=== PATIENT | female | born 1990 | race Caucasian/White ===

== ENCOUNTER 2016-11-05 19:30 | Emergency (ER) | payer SELFPAY ==
[2016-11-05 19:42] VITALS: BP 142/84; BMI 29.2
--- NOTE | 2016-11-05 20:08 | DR.GENAD ---
HPI - PCP Primary Care Physician: VINNIE HUA - Complaint/Symptoms Chief Complaint:: POSITIVE HOME PREG TEST; PAIN WITH BLEEDING, N/V; PAIN MORE INTENSE X 2 WEEKS; STABBING PAIN LEFT TO RIGHT ON LOWER ABDOMEN. Self Treatment fo Chief Complaint: NO MEDS TAKEN AT HOME - Source History Provided: Patient - Mode of Arrival Mode of Arrival: Ambulatory - Timing Onset of Chief Complaint: 10/23/16 PMH - PMH Past Medical History: Yes Past Medical History: Asthma Past Surgical History: Yes Past Surgical History Comment: - Family History History of Family Medical Conditions: Yes Family Medical History: Hypertension - Social History Does patient currently use any type of tobacco product: No Have you used tobacco products in the last 12 months: No Type of Tobacco Use: None Alcohol Use: Rarely Do you use any recreational Drugs:: No Lives With: Alone Lives Where: Home - infectious screening In the last 2 months have you had wt loss of >10#?: NO Have you had fever, night sweats or hemotysis?: No Have you traveled outside the country in the last 6 months?: No Isolation: Standard ROS - Review of Systems Eyes: No Symptoms Reported ENTM: No Symptoms Reported Respiratoy: No Symptoms Reported Cardiovascular: No Symptoms Reported Gastrointestinal/Abdominal: No Symptoms Reported Genitourinary: No Symptoms Reported Neurological: No Symptoms Reported Musculoskeletal: No Symptoms Reported Integumentary: No Symptoms Reported Hematologic/Lymphatic: No Symptoms Reported Endocrine: No Symptoms Reported, Increased Hunger All Other Systems: Reviewed and Negative PE - Vital Signs Vitals: Temperature 98.1 F Pulse Rate 90 Respiratory Rate 16 Blood Pressure 142/84 O2 Sat by Pulse Oximetry 94 - General Limitations: No Limitations, Language Barrier General Appearance: Alert - Head Head Exam: Normal Inspection, Atraumatic - Eyes Eye exam: Normal Appearance, PERRL, EOMI - ENT ENT Exam: Normal Exam External Ear Exam: Normal External Inspection TM/Canal Exam: Bilateral Normal Nose Exam: Normal Nose Exam, Sinus Tenderness Mouth Exam: Normal Inspection Throat Exam: Normal Inspection - Neck Neck Exam: Normal Inspection - Chest Chest Inspection: Normal Inspection - Respiratory Respiratory Exam: Normal Lung Sounds Bilat Respiratory Exam: Bilateral Clear to Auscultation - Cardiovascular Cardiovascular Exam: Regular Rate, Normal Rhythm - Abdominal Exam Abdominal Exam: Normal Inspection, Normal Bowel Sounds Abdominal Tenderness: negative: RUQ, RLQ, LUQ, LLQ, Epigastrium, Suprapubic, Diffuse, Mild, Moderate, Severe, Other - Extremities Extremities Exam: Normal Inspection, Full ROM - Back Back Exam: Normal Inspection, Full ROM - Neurologic Neurological Exam: Alert, Oriented X3, CN II-XII Intact - Psychiatric Psychiatric Exam: Normal Affect, Normal Mood - Skin Skin Exam: Warm, Dry, Intact ROR - Labs Reviewed Result Diagrams: 11/05/16 20:13 11/05/16 20:13 Laboratory: WBC 5.0 X10^3/uL (3.6-10.0) 11/05/16 20:13 RBC 5.24 X10^6/uL (3.5-5.4) 11/05/16 20:13 Hgb 11.8 g/dL (12.0-16.0) L 11/05/16 20:13 Hct 35.9 % (36.0-47.0) L 11/05/16 20:13 MCV 68.5 fL (80.0-100.0) L 11/05/16 20:13 MCH 22.5 pg (27.0-34.0) L 11/05/16 20:13 MCHC 32.8 g/dL (33.0-35.0) L 11/05/16 20:13 RDW 16.4 % (11.6-16.5) 11/05/16 20:13 Plt Count 165 X10^3/uL (150.0-450.0) 11/05/16 20:13 Plt Count Comment Adequate (ADEQUATE) 11/05/16 20:13 MPV 7.2 fL (7.4-11.0) L 11/05/16 20:13 Neut % 60.8 % (42.0-75.0) 11/05/16 20:13 Lymph % 29.5 % (21.0-51.0) 11/05/16 20:13 [place] % 6.7 % (0.0-13.0) 11/05/16 20:13 Eos % 2.1 % (0.9-2.9) 11/05/16 20:13 Baso % 0.9 % (0.2-1.0) 11/05/16 20:13 Neut # 3.0 x10^3/uL (2.2-4.8) 11/05/16 20:13 Lymph # 1.5 X10^3/uL (1.3-2.9) 11/05/16 20:13 [place] # 0.3 x10^3/uL (0.3-0.8) 11/05/16 20:13 Eos # 0.1 x10^3/uL (0.0-0.2) 11/05/16 20:13 Baso # 0.0 X10^3/uL (0.0-0.1) 11/05/16 20:13 Absolute Nucleated RBC 0.1 /100WBC 11/05/16 20:13 Plt Morphology Comment Normal (NORMAL) 11/05/16 20:13 RBC Morphology Abnormal (NORMAL) A 11/05/16 20:13 Hypochromasia 1+ A 11/05/16 20:13 Microcytosis 1+ A 11/05/16 20:13 Sodium 138 mmol/L (136-145) 11/05/16 20:13 Corrected Sodium TNP 11/05/16 20:13 Potassium 3.9 mmol/L (3.5-5.1) 11/05/16 20:13 Chloride 101 mmol/L (98-107) 11/05/16 20:13 Carbon Dioxide 28.4 mmol/L (21-32) 11/05/16 20:13 BUN 10 mg/dL (7-18) 11/05/16 20:13 Creatinine 0.84 mg/dL (0.55-1.02) 11/05/16 20:13 Est GFR (MDRD) Af Amer > 60 (>60) 11/05/16 20:13 Est GFR (MDRD) Non-Af > 60 (>60) 11/05/16 20:13 Glucose 93 mg/dL (65-99) 11/05/16 20:13 Calcium 9.0 mg/dL (8.5-10.1) 11/05/16 20:13 HCG, Quant < 1 mIU/mL (0-6) 11/05/16 20:13 Specimen Type Clean catch urine 11/05/16 20:01 Urine Color Yellow (YELLOW) 11/05/16 20:01 Urine Appearance Slightly hazy (CLEAR) 11/05/16 20: Urine pH 7.0 (5.0 - 8.0) 11/05/16 20:01 Ur Specific [place] 1.010 (1.000-1.030) 11/05/16 20:01 Urine Protein 3+ (NEGATIVE) 11/05/16 20:01 Urine Glucose (UA) Negative (NEGATIVE) 11/05/16 20:01 Urine Ketones Negative (NEGATIVE) 11/05/16 20:01 Urine Occult Blood 2+ (NEGATIVE) 11/05/16 20:01 Urine Nitrite Negative (NEGATIVE) 11/05/16 20: Urine Bilirubin Negative (NEGATIVE) 11/05/16 20:01 Urine Urobilinogen 1+ (NORMAL) 11/05/16 20:01 Ur Leukocyte Esterase 1+ (NEGATIVE) 11/05/16 20:01 Urine RBC 5-7 /HPF (NEGATIVE) 11/05/16 20:01 Urine WBC 2-3 /HPF (NEGATIVE) 11/05/16 20:01 Ur Squamous Epith Cells Few /HPF (NEGATIVE) 11/05/16 20:01 Amorphous Sediment Trace /HPF (NEGATIVE) 11/05/16 20:01 Urine Bacteria 1+ /HPF (NEGATIVE) 11/05/16 20:01 Ur Culture Indicated? No/not indicated 11/05/16 20:01 - XRAY XRAY Interpreted by: Radiologist (CT Abd/Pelv: Mild proximal small bowel wall thickening with associated perienteric stranding and mild mesenteric adenopathy, suggestive for enteritis and mesenteric adenitis.) - Diagnosis Discharge Problem: Mesenteric adenitis - Discharge Plan Condition: Stable - Follow ups/Referrals Follow ups/Referrals: VINNIE HUA [Primary Care Provider] - 3 days - Instructions
[2016-11-05 20:09] LABS: BILIRUBIN,URINE NEGATIVE (NEGATIVE); BLOOD/HEMOGLOBIN,URINE 2+ (NEGATIVE); GLUCOSE, URINE NEGATIVE (NEGATIVE); KETONES,URINE NEGATIVE (NEGATIVE); LEUKOCYTE ESTERASE ,URINE 1+ (NEGATIVE); NITRITES,URINE NEGATIVE (NEGATIVE); PROTEIN,URINE 3+ (NEGATIVE); UROBILINOGEN,URINE 1+ (NORMAL)
[2016-11-05 20:16] LABS: APPEARANCE,URINE SLIGHTLY HAZY (CLEAR); COLOR,URINE YELLOW (YELLOW)
[2016-11-05 20:17] LABS: AMORPHOUS SEDIMENT,UR TRACE /HPF (NEGATIVE); BACTERIA,URINE 1+ /HPF (NEGATIVE); SQUAMOUS EPITHELIAL CELL,UR FEW /HPF (NEGATIVE)
[2016-11-05 20:22] LABS: BASOPHILS % (AUTO) 0.9 % (0.2-1.0); EOSINOPHILS # (AUTO) 0.1 x10^3/uL (0.0-0.2); EOSINOPHILS % (AUTO) 2.1 % (0.9-2.9); HEMATOCRIT 35.9 % (36.0-47.0); HEMOGLOBIN 11.8 g/dL (12.0-16.0); LYMPHOCYTES # (AUTO) 1.5 X10^3/uL (1.3-2.9); LYMPHOCYTES % (AUTO) 29.5 % (21.0-51.0); MEAN CORPUSCULAR HEMOGLOBIN 22.5 pg (27.0-34.0); MEAN CORPUSCULAR HGB CONC 32.8 g/dL (33.0-35.0); MEAN CORPUSCULAR VOLUME 68.5 fL (80.0-100.0); MEAN PLATELET VOLUME 7.2 fL (7.4-11.0); MONOCYTES # (AUTO) 0.3 x10^3/uL (0.3-0.8); MONOCYTES % (AUTO) 6.7 % (0.0-13.0); NEUTROPHILS % (AUTO) 60.8 % (42.0-75.0); PLATELET COUNT 165 X10^3/uL (150.0-450.0); RED BLOOD COUNT 5.24 X10^6/uL (3.5-5.4); RED CELL DISTRIBUTION WIDTH 16.4 % (11.6-16.5)
[2016-11-05 20:32] LABS: BLOOD UREA NITROGEN 10 mg/dL (7-18); CARBON DIOXIDE 28.4 mmol/L (21-32); CHLORIDE 101 mmol/L (98-107); CREATININE 0.84 mg/dL (0.55-1.02); SODIUM 138 mmol/L (136-145); eGFR BLACK RACES > 60 (>60); eGFR NON BLACK RACES > 60 (>60)
[2016-11-05 20:39] LABS: HYPOCHROMASIA 1+; MICROCYTOSIS 1+; PLATELET MORPHOLOGY COMMENT NORMAL (NORMAL)
[2016-11-05 20:45] LABS: HCG,QUANTITATIVE < 1 mIU/mL (0-6)
--- NOTE | 2016-11-05 21:36 | CT ---
CT abdomen and pelvis without contrast Indication: Flank pain, hematuria Technique: Helical CT images of the abdomen and pelvis were obtained without IV contrast. Reformatted images in the coronal and sagittal planes were also generated for review. Comparison: None Findings: There is mild atelectasis versus scarring within the right lower lobe. Visualized lung base s are otherwise clear. No aggressive osseous lesions are identified. Within the limits of a noncontrast exam, the liver, collapsed gallbladder, spleen, pancreas and adren al glands are grossly unremarkable. Both kidneys and visualize ureters are also normal in appearance without evidence of radiopaque stones or hydroureteronephrosis. Mild thickening and perienteric stran ding is noted of the proximal small bowel with numerous shotty left mesenteric lymph nodes. The remai esperanza GI tract, including the appendix is normal. The IVC, abdominal aorta and urinary bladder are nor mal. An IUD is present within the uterus. The unenhanced adnexa are grossly unremarkable. No free air , free fluid or pathologically enlarged lymph nodes are identified. Impression: Mild proximal small bowel wall thickening with associated perienteric stranding and mild mesenteric a denopathy, suggestive for enteritis and mesenteric adenitis. Otherwise, no additional acute abnormality identified. Specifically, no CT evidence of urolithiasis o r obstructive uropathy. Reported By:
== END 2016-11-05 22:20 | disposition home or self-care (01) ==
LOC: ER 19:30
DX: I88.0 Nonspecific mesenteric lymphadenitis (principal)
CPT/HCPCS: 12013; 36415; 74176; 80048; 81001; 84702; 85025; 99283

== ENCOUNTER 2018-06-22 21:32 | Observation (INO) ==
[2018-06-22] MEDS ORDERED: ZOFRAN INJ 4 MG VIAL ONE (21:50)
[2018-06-22] MEDS ORDERED: ZOFRAN INJ 4 MG VIAL IVP ONE (21:50)
[2018-06-22] MEDS ORDERED: NS 1000 ML 1,000 ML IV ONE (21:50)
[2018-06-22] MEDS ORDERED: NS 1000 ML 1,000 ML ONE (21:50)
[2018-06-22] MEDS ORDERED: DEMEROL INJ IVP ONE (22:26)
[2018-06-22 22:29] LABS: BASOPHILS % (AUTO) 0.1 % (0.2-1.0); EOSINOPHILS # (AUTO) 0.1 x10^3/uL (0.0-0.2); EOSINOPHILS % (AUTO) 0.9 % (0.9-2.9); LYMPHOCYTES # (AUTO) 0.8 X10^3/uL (1.3-2.9); LYMPHOCYTES % (AUTO) 6.6 % (21.0-51.0); MEAN CORPUSCULAR HEMOGLOBIN 29.3 pg (27.0-34.0); MEAN CORPUSCULAR HGB CONC 34.2 g/dL (33.0-35.0); MEAN CORPUSCULAR VOLUME 85.5 fL (80.0-100.0); MEAN PLATELET VOLUME 7.7 fL (7.4-11.0); MONOCYTES # (AUTO) 0.4 x10^3/uL (0.3-0.8); MONOCYTES % (AUTO) 3.3 % (0.0-13.0); NEUTROPHILS # (AUTO) 11.2 x10^3/uL (2.2-4.8); NEUTROPHILS % (AUTO) 89.1 % (42.0-75.0); PLATELET COUNT 266 X10^3/uL (150.0-450.0); RED BLOOD COUNT 4.79 X10^6/uL (3.5-5.4); RED CELL DISTRIBUTION WIDTH 12.8 % (11.6-16.5); WHITE BLOOD COUNT 12.5 X10^3/uL (3.6-10.0)
[2018-06-22] MEDS ORDERED: DEMEROL INJ ONE (22:29)
[2018-06-22 22:37] LABS: ALANINE AMINOTRANSFERASE 44 Units/L (12-78); ALBUMIN 3.4 g/dL (3.4-5.0); ALKALINE PHOSPHATASE 65 Units/L (46-116); AMYLASE 40 Units/L (25-115); ASPARTATE AMINO TRANSFERASE 27 Units/L (15-37); BLOOD UREA NITROGEN 10 mg/dL (7-18); CALCIUM 8.7 mg/dL (8.5-10.1); CARBON DIOXIDE 24.8 mmol/L (21-32); CHLORIDE 105 mmol/L (98-107); COR NA(FOR HYPERGLY) 142 mmol/L (136-145); CREATININE 0.97 mg/dL (0.55-1.02); LIPASE 104 Units/L (73-393); SODIUM 141 mmol/L (136-145); TOTAL PROTEIN 7.1 g/dL (6.4-8.2); eGFR NON BLACK RACES > 60 (>60)
[2018-06-23] MEDS ORDERED: NS 100 ML IV + SPIKE MINIBAG* 100 ML ONE ×2 (00:05→01:16)
--- NOTE | 2018-06-23 00:52 | CT ---
CT abdomen and pelvis with contrast Indication: right lower quadrant pain Comparison: 11/05/2016 Technique: Multiple axial images of the abdomen and pelvis were obtained from the lung bases to the pubic symphysis after the administration of IV contrast. Coronal and sagittal reformatted images were also provided. Findings: No change in scarring within the subpleural right lower lobe. No focal hepatic lesion. The gallbladder, bile ducts, spleen, pancreas and adrenal glands are normal. Neither kidney demonstrates evidence of nephrolithiasis, hydronephrosis or mass. Urinary bladder is normal. No pelvic or adnexal mass. IUD is noted in expected positioning. The rectum and colon are unremarkable. There is dilatation of the appendix measuring approximately 11 mm in greatest caliber with surrounding inflammatory change consistent acute appendicitis. There is no localizing fluid or air to suggest perforation. The upper GI tract demonstrates no evidence of mass or obstruction. Abdominal aorta is normal in caliber. No acute osseous abnormality. Impression: 1.Acute appendicitis without evidence of free air or localizing fluid collection to suggest perforation. Surgical consultation is recommended. 2. Incidental, nonacute findings as above. Reported By:
[2018-06-23] MEDS ORDERED: ZOSYN VIAL 3.375 GRAMS 3.375 G in NS 100 ML IV + SPIKE MINIBAG* 100 ML IV ONE (01:09)
[2018-06-23] MEDS ORDERED: ZOSYN VIAL 3.375 GRAMS IV ONE (01:16)
--- NOTE | 2018-06-23 01:16 | ED.ABDFE ---
HPI Time Seen Time Seen by Provider: 06/22/18 22:18 PCP Primary Care Physician: NFD Complaint Chief Complaint:: PT STATES" I'M HAVING PAIN ON MY RIGHT SIDE AND I VOMITTED X 2. THE PAIN STARTED AT 2 PM TODAY AND HAS BEEN NON STOP SINCE" Source History Provided: Patient Mode of arrival Mode of Arrival: Ambulatory Timing Onset of Chief Complaint: 06/22/18 PMH PMH Past Medical History: Yes Past Medical History Comment: DVT Past Surgical History: Yes Surgical History: Family History History of Family Medical Conditions: Yes Family Medical History: Hypertension Social History Does patient currently use any type of tobacco product: No Have you used tobacco products in the last 12 months: No Type of Tobacco Use: None Does any household member use tobacco: No Alcohol Use: None Do you use any recreational Drugs:: No Lives With: Family Lives Where: Home infectious screening In the last 2 months have you had wt loss of >10#?: NO Have you had fever, night sweats or hemotysis?: No Have you traveled outside the country in the last 6 months?: No Isolation: Standard PE Vital Signs Vitals: Temperature 98.4 F Pulse Rate [Right] 78 Pulse Rate 60 Respiratory Rate 16 Blood Pressure [Right Arm] 102/64 Blood Pressure 88/60 O2 Sat by Pulse Oximetry 100 ROR Labs Reviewed Result Diagrams: 06/22/18 22:10 06/22/18 22:10 Laboratory: WBC 12.5 X10^3/uL (3.6-10.0) H 06/22/18 22:10 RBC 4.79 X10^6/uL (3.5-5.4) 06/22/18 22:10 Hgb 14.0 g/dL (12.0-16.0) 06/22/18 22:10 Hct 41.0 % (36.0-47.0) 06/22/18 22:10 MCV 85.5 fL (80.0-100.0) 06/22/18 22:10 MCH 29.3 pg (27.0-34.0) 06/22/18 22:10 MCHC 34.2 g/dL (33.0-35.0) 06/22/18 22:10 RDW 12.8 % (11.6-16.5) 06/22/18 22:10 Plt Count 266 X10^3/uL (150.0-450.0) 06/22/18 22:10 MPV 7.7 fL (7.4-11.0) 06/22/18 22:10 Neut % (Auto) 89.1 % (42.0-75.0) H 06/22/18 22:10 Lymph % (Auto) 6.6 % (21.0-51.0) L 06/22/18 22:10 [place] % (Auto) 3.3 % (0.0-13.0) 06/22/18 22:10 Eos % (Auto) 0.9 % (0.9-2.9) 06/22/18 22:10 Baso % (Auto) 0.1 % (0.2-1.0) L 06/22/18 22:10 Neut # (Auto) 11.2 x10^3/uL (2.2-4.8) H 06/22/18 22:10 Lymph # (Auto) 0.8 X10^3/uL (1.3-2.9) L 06/22/18 22:10 [place] # (Auto) 0.4 x10^3/uL (0.3-0.8) 06/22/18 22:10 Eos # (Auto) 0.1 x10^3/uL (0.0-0.2) 06/22/18 22:10 Baso # (Auto) 0.0 X10^3/uL (0.0-0.1) 06/22/18 22:10 Absolute Nucleated RBC 0.0 /100WBC 06/22/18 22:10 Sodium 141 mmol/L (136-145) 06/22/18 22:10 Corrected Sodium 142 mmol/L (136-145) 06/22/18 22:10 Potassium 3.8 mmol/L (3.5-5.1) 06/22/18 22:10 Chloride 105 mmol/L (98-107) 06/22/18 22:10 Carbon Dioxide 24.8 mmol/L (21-32) 06/22/18 22:10 BUN 10 mg/dL (7-18) 06/22/18 22:10 Creatinine 0.97 mg/dL (0.55-1.02) 06/22/18 22:10 Est GFR (MDRD) Af Amer > 60 (>60) 06/22/18 22:10 Est GFR (MDRD) Non-Af > 60 (>60) 06/22/18 22:10 Glucose 123 mg/dL (65-99) H 06/22/18 22:10 Calcium 8.7 mg/dL (8.5-10.1) 06/22/18 22:10 Corrected Calcium TNP 06/22/18 22:10 Total Bilirubin 1.00 mg/dL (0.2-1.0) 06/22/18 22:10 AST 27 Units/L (15-37) 06/22/18 22:10 ALT 44 Units/L (12-78) 06/22/18 22:10 Alkaline Phosphatase 65 Units/L (46-116) 06/22/18 22:10 Total Protein 7.1 g/dL (6.4-8.2) 06/22/18 22:10 Albumin 3.4 g/dL (3.4-5.0) 06/22/18 22:10 Globulin 3.7 g/dL (2.5-4.5) 06/22/18 22:10 Albumin/Globulin Ratio 0.9 Ratio (1.1-2.1) L 06/22/18 22:10 Amylase 40 Units/L (25-115) 06/22/18 22:10 Lipase 104 Units/L (73-393) 06/22/18 22:10
[2018-06-23 01:43] LABS: SERUM PREGNANCY TEST, QUAL NEGATIVE <10 mIU/mL
[2018-06-23] MEDS ORDERED: NS 1000 ML 1,000 ML IV SCH (02:00)
[2018-06-23 03:02] VITALS: BMI 33.5
[2018-06-23 04:59] LABS: BASOPHILS % (AUTO) 0.4 % (0.2-1.0); EOSINOPHILS % (AUTO) 0.5 % (0.9-2.9); HEMATOCRIT 40.1 % (36.0-47.0); HEMOGLOBIN 13.9 g/dL (12.0-16.0); LYMPHOCYTES # (AUTO) 1.2 X10^3/uL (1.3-2.9); LYMPHOCYTES % (AUTO) 13.5 % (21.0-51.0); MEAN CORPUSCULAR HEMOGLOBIN 29.9 pg (27.0-34.0); MEAN CORPUSCULAR HGB CONC 34.6 g/dL (33.0-35.0); MEAN CORPUSCULAR VOLUME 86.2 fL (80.0-100.0); MEAN PLATELET VOLUME 8.4 fL (7.4-11.0); MONOCYTES # (AUTO) 0.3 x10^3/uL (0.3-0.8); MONOCYTES % (AUTO) 3.7 % (0.0-13.0); NEUTROPHILS # (AUTO) 7.6 x10^3/uL (2.2-4.8); NEUTROPHILS % (AUTO) 81.9 % (42.0-75.0); PLATELET COUNT 231 X10^3/uL (150.0-450.0); RED BLOOD COUNT 4.66 X10^6/uL (3.5-5.4); RED CELL DISTRIBUTION WIDTH 12.3 % (11.6-16.5); WHITE BLOOD COUNT 9.2 X10^3/uL (3.6-10.0)
[2018-06-23 05:10] LABS: ALANINE AMINOTRANSFERASE 44 Units/L (12-78); ALBUMIN 3.2 g/dL (3.4-5.0); ALKALINE PHOSPHATASE 59 Units/L (46-116); ASPARTATE AMINO TRANSFERASE 28 Units/L (15-37); BLOOD UREA NITROGEN 8 mg/dL (7-18); CALCIUM 8.5 mg/dL (8.5-10.1); CARBON DIOXIDE 26.2 mmol/L (21-32); CHLORIDE 105 mmol/L (98-107); COR CA(FOR HYPOALB) 9.1 mg/dL (8.5-10.1); CREATININE 0.87 mg/dL (0.55-1.02); SODIUM 140 mmol/L (136-145); TOTAL PROTEIN 6.7 g/dL (6.4-8.2); eGFR NON BLACK RACES > 60 (>60)
[2018-06-23 07:54] LABS: BILIRUBIN,URINE NEGATIVE (NEGATIVE); BLOOD/HEMOGLOBIN,URINE 1+ (NEGATIVE); GLUCOSE, URINE NEGATIVE (NEGATIVE); KETONES,URINE NEGATIVE (NEGATIVE); LEUKOCYTE ESTERASE ,URINE NEGATIVE (NEGATIVE); NITRITES,URINE NEGATIVE (NEGATIVE); PH,URINE 6.5 (5.0 - 8.0); PROTEIN,URINE 3+ (NEGATIVE); UROBILINOGEN,URINE NORMAL (NORMAL)
[2018-06-23 07:57] LABS: APPEARANCE,URINE CLEAR (CLEAR); COLOR,URINE YELLOW (YELLOW)
[2018-06-23 08:05] LABS: BACTERIA,URINE NEGATIVE /HPF (NEGATIVE); MUCUS,URINE FEW /HPF (NEGATIVE); RBC,URINE 0-2 /HPF (NONE SEEN); SQUAMOUS EPITHELIAL CELL,UR FEW /HPF (NEGATIVE)
[2018-06-23] MEDS ORDERED: ANCEF 1 GRAM IV PREMIX* 1 G/50 ML BAG IV ONE (08:52)
[2018-06-23] MEDS ORDERED: D5 LR 1000 ML 1,000 ML ONE (08:52)
[2018-06-23] MEDS ORDERED: LTA KIT LIDOCAINE 4% ONE (09:15)
[2018-06-23] MEDS ORDERED: QUELICIN (OR ANECTINE) ONE (09:15)
[2018-06-23] MEDS ORDERED: SUPRANE ONE (09:15)
[2018-06-23] MEDS ORDERED: XYLOCAINE 2 % (PLAIN) ONE (09:15)
[2018-06-23] MEDS ORDERED: DIPRIVAN VIAL ONE (09:15)
[2018-06-23] MEDS ORDERED: ZOFRAN INJ 4 MG VIAL ONE ×2 (09:15→11:33)
[2018-06-23] MEDS ORDERED: ROBINUL ONE (09:15)
[2018-06-23] MEDS ORDERED: VERSED ONE (09:15)
[2018-06-23] MEDS ORDERED: NORCURON INJ 10 MG VIAL ONE (09:15)
[2018-06-23] MEDS ORDERED: NEOSTIGMINE INJ ONE (09:15)
[2018-06-23] MEDS ORDERED: FENTANYL INJ 250 mcg ONE (10:30)
[2018-06-23] MEDS ORDERED: BACTROBAN TOPICAL OINT ONE (10:54)
[2018-06-23 11:11] LABS: BILIRUBIN,URINE NEGATIVE (NEGATIVE); BLOOD/HEMOGLOBIN,URINE 1+ (NEGATIVE); GLUCOSE, URINE NEGATIVE (NEGATIVE); KETONES,URINE NEGATIVE (NEGATIVE); LEUKOCYTE ESTERASE ,URINE NEGATIVE (NEGATIVE); NITRITES,URINE NEGATIVE (NEGATIVE); PH,URINE 6.5 (5.0 - 8.0); PROTEIN,URINE 3+ (NEGATIVE); UROBILINOGEN,URINE NORMAL (NORMAL)
[2018-06-23 11:14] LABS: APPEARANCE,URINE CLEAR (CLEAR); COLOR,URINE YELLOW (YELLOW)
[2018-06-23 11:21] LABS: AMORPHOUS SEDIMENT,UR TRACE /HPF (NEGATIVE); BACTERIA,URINE NEGATIVE /HPF (NEGATIVE); MUCUS,URINE FEW /HPF (NEGATIVE); SQUAMOUS EPITHELIAL CELL,UR RARE /HPF (NEGATIVE)
[2018-06-23] MEDS ORDERED: PHENERGAN INJ 25 MG IM ONE (11:33)
[2018-06-23] MEDS ORDERED: ZOFRAN INJ 4 MG VIAL IVP PRN (11:37)
[2018-06-23] MEDS ORDERED: BENADRYL INJ 50 MG VIAL IVP PRN (11:37)
[2018-06-23] MEDS ORDERED: PHENERGAN INJ 25 MG IM PRN (11:37)
[2018-06-23] MEDS ORDERED: REGLAN INJ 10 MG VIAL IVP PRN (11:37)
[2018-06-23] MEDS: DILAUDID INJ IVP PRN ×7 (11:45→22:39)
[2018-06-23] MEDS: D5 1/2 NS 1000 ML 1,000 ML IV SCH ×2 (14:14→22:52)
[2018-06-23] MEDS: ZOSYN VIAL 3.375 GRAMS 3.375 G in NS 100 ML IV + SPIKE MINIBAG* 100 ML IV SCH ×3 (14:15→23:57)
[2018-06-24] MEDS: D5 1/2 NS 1000 ML 1,000 ML IV SCH (05:08)
[2018-06-24] MEDS: ZOSYN VIAL 3.375 GRAMS 3.375 G in NS 100 ML IV + SPIKE MINIBAG* 100 ML IV SCH (05:08)
[2018-06-24] MEDS: DILAUDID INJ IVP PRN (05:27)
--- NOTE | 2018-06-24 09:20 | DR.PROGNOT ---
Hospital Progress Notes - Progress Note for Day of: Progress Note Date: 06/24/18 - Chief Complaint Chief Complaint: PO lap appendectomy . doing fairly well . afebrile .OOB - Past Medical Family Social History Past Med/Fam/Surg Hx: No changes since H&P Allergies: Allergies No Known Allergies [NKA] Allergy (Verified 11/05/16 20:15) - Review Of Systems ROS: No change since H&P - Vital Signs Vital Signs: Temperature 98.7 F Pulse Rate [Left Brachial] 86 Pulse Rate [Right] 70 Pulse Rate 58 Respiratory Rate 19 Blood Pressure [Left Arm] 116/69 Blood Pressure [Right Arm] 114/69 Blood Pressure 104/68 O2 Sat by Pulse Oximetry 93 - Physical Exam Oriented: Normal Eyes: Normal Ear: Normal Nose: Normal : Normal GI:Auscultation: Normal GI:Palpation: Normal GI: Tenderness: Diffuse (soft abdomen , flat BS +) Mood Description: Calm Speech Pattern: Clear, Appropriate - Laboratory and Diagnostics Result Diagrams: 06/23/18 03:55 06/23/18 03:55 Labs: Laboratory WBC 9.2 X10^3/uL (3.6-10.0) 06/23/18 03:55 RBC 4.66 X10^6/uL (3.5-5.4) 06/23/18 03:55 Hgb 13.9 g/dL (12.0-16.0) 06/23/18 03:55 Hct 40.1 % (36.0-47.0) 06/23/18 03:55 MCV 86.2 fL (80.0-100.0) 06/23/18 03:55 MCH 29.9 pg (27.0-34.0) 06/23/18 03:55 MCHC 34.6 g/dL (33.0-35.0) 06/23/18 03:55 RDW 12.3 % (11.6-16.5) 06/23/18 03:55 Plt Count 231 X10^3/uL (150.0-450.0) 06/23/18 03:55 MPV 8.4 fL (7.4-11.0) 06/23/18 03:55 Neut % (Auto) 81.9 % (42.0-75.0) H 06/23/18 03:55 Lymph % (Auto) 13.5 % (21.0-51.0) L 06/23/18 03:55 [place] % (Auto) 3.7 % (0.0-13.0) 06/23/18 03:55 Eos % (Auto) 0.5 % (0.9-2.9) L 06/23/18 03:55 Baso % (Auto) 0.4 % (0.2-1.0) 06/23/18 03:55 Neut # (Auto) 7.6 x10^3/uL (2.2-4.8) H 06/23/18 03:55 Lymph # (Auto) 1.2 X10^3/uL (1.3-2.9) L 06/23/18 03:55 [place] # (Auto) 0.3 x10^3/uL (0.3-0.8) 06/23/18 03:55 Eos # (Auto) 0.0 x10^3/uL (0.0-0.2) 06/23/18 03:55 Baso # (Auto) 0.0 X10^3/uL (0.0-0.1) 06/23/18 03:55 Absolute Nucleated RBC 0.0 /100WBC 06/23/18 03:55 Sodium 140 mmol/L (136-145) 06/23/18 03:55 Corrected Sodium TNP 06/23/18 03:55 Potassium 4.0 mmol/L (3.5-5.1) 06/23/18 03:55 Chloride 105 mmol/L (98-107) 06/23/18 03:55 Carbon Dioxide 26.2 mmol/L (21-32) 06/23/18 03:55 BUN 8 mg/dL (7-18) 06/23/18 03:55 Creatinine 0.87 mg/dL (0.55-1.02) 06/23/18 03:55 Est GFR (MDRD) Af Amer > 60 (>60) 06/23/18 03:55 Est GFR (MDRD) Non-Af > 60 (>60) 06/23/18 03:55 Glucose 94 mg/dL (65-99) 06/23/18 03:55 Calcium 8.5 mg/dL (8.5-10.1) 06/23/18 03:55 Corrected Calcium 9.1 mg/dL (8.5-10.1) 06/23/18 03:55 Total Bilirubin 1.50 mg/dL (0.2-1.0) H 06/23/18 03:55 AST 28 Units/L (15-37) 06/23/18 03:55 ALT 44 Units/L (12-78) 06/23/18 03:55 Alkaline Phosphatase 59 Units/L (46-116) 06/23/18 03:55 Total Protein 6.7 g/dL (6.4-8.2) 06/23/18 03:55 Albumin 3.2 g/dL (3.4-5.0) L 06/23/18 03:55 Globulin 3.5 g/dL (2.5-4.5) 06/23/18 03:55 Albumin/Globulin Ratio 0.9 Ratio (1.1-2.1) L 06/23/18 03:55 Amylase 40 Units/L (25-115) 06/22/18 22:10 Lipase 104 Units/L (73-393) 06/22/18 22:10 HCG, Qual Negative <10 mIU/mL 06/23/18 00:00 Specimen Type Catherized urine 06/23/18 11:02 Urine Color Yellow (YELLOW) 06/23/18 11:02 Urine Appearance Clear (CLEAR) 06/23/18 11:02 Urine pH 6.5 (5.0 - 8.0) 06/23/18 11:02 Ur Specific [place] 1.010 (1.000-1.030) 06/23/18 11:02 Urine Protein 3+ (NEGATIVE) 06/23/18 11:02 Urine Glucose (UA) Negative (NEGATIVE) 06/23/18 11:02 Urine Ketones Negative (NEGATIVE) 06/23/18 11:02 Urine Occult Blood 1+ (NEGATIVE) 06/23/18 11:02 Urine Nitrite Negative (NEGATIVE) 06/23/18 11:02 Urine Bilirubin Negative (NEGATIVE) 06/23/18 11:02 Urine Urobilinogen Normal (NORMAL) 06/23/18 11:02 Ur Leukocyte Esterase Negative (NEGATIVE) 06/23/18 11:02 Urine RBC 3-5 /HPF (NONE SEEN) 06/23/18 11:02 Urine WBC 0-2 /HPF (NONE SEEN) 06/23/18 11:02 Ur Squamous Epith Cells Rare /HPF (NEGATIVE) 06/23/18 11:02 Amorphous Sediment Trace /HPF (NEGATIVE) 06/23/18 11:02 Urine Bacteria Negative /HPF (NEGATIVE) 06/23/18 11:02 Urine Mucus Few /HPF (NEGATIVE) 06/23/18 11:02 Ur Culture Indicated? No/not indicated 06/23/18 11:02 Tissue Pathology To follow 06/23/18 11:17 - Assessment and Plan 1: PO appendectomy . same PO care . start full liquid . d/c later on today .
[2018-06-24 13:55] VITALS: BP 119/71
== END 2018-06-24 14:30 | disposition home or self-care (01) ==
LOC: ER 21:34 → MED/SURG 21:34
PROVIDERS: ADMIT Obstetrics & Gynecology Obstetrics; ATTEND Obstetrics & Gynecology Obstetrics
PROC: APPYLAP (ICD-10-PCS; 2018-06-23 10:00)
DX: D72.828 Other elevated white blood cell count; R73.09 Other abnormal glucose; K35.890 Other acute appendicitis without perforation or gangrene; R12 Heartburn; K66.0 Peritoneal adhesions (postprocedural) (postinfection); R10.31 Right lower quadrant pain
CPT/HCPCS: 36415; 74177; 80053; 81001; 82150; 83690; 84703; 85025; 96365; 96367; 96374; 96375; 99284; A4216; A4222; G0378; J0330; J0690; J1170; J2175; J2250; J2405; J2543; J2550; J2704; J2710; J2765; J3010; J3490; J7030; J7050; J7121; S5010